=== PATIENT | female | born 1980 | race Caucasian/White ===

== ENCOUNTER 2017-06-04 06:40 | Day surgery (SDC) | payer MEDICAID ==
[2017-06-03 09:55] VITALS: BMI 27.1
[2017-06-04] MEDS ORDERED: cefOXitin IV 1 gm in Dextrose 0 GM/0 ML BAG IVPB ONE (09:40)
[2017-06-04] MEDS ORDERED: Bupivacaine HCl 0.25% PF (10 ml) Inj ONE (09:44)
[2017-06-04] MEDS ORDERED: Propofol 10 mg/ml Inj (20 ML) ONE (09:48)
[2017-06-04] MEDS ORDERED: Midazolam 2 MG/2 ML VIAL ONE (09:48)
[2017-06-04] MEDS ORDERED: Methylene Blue 10 mg/mL(10ml) IV ONE (09:54)
[2017-06-04] MEDS ORDERED: cefOXitin IV 2 gm in Dextrose 2 GM/50 ML BAG IVPB ONE (09:54)
[2017-06-04] MEDS ORDERED: Neostigmine Methylsulfate 3mg/3ml Syringe IV ONE (10:27)
[2017-06-04] MEDS ORDERED: HYDROmorphone 0.5 mg/0.5 ml ISec IVP PRN (11:12)
[2017-06-04] MEDS ORDERED: Lactated Ringer's 1,000 ML IV SCH (11:15)
[2017-06-04 11:21] VITALS: O2SAT 100
[2017-06-04] MEDS ORDERED: Lactated Ringer's 500 ML IV ONE (11:56)
[2017-06-04 12:04] VITALS: RESP 18
[2017-06-04 12:16] VITALS: BP 122/71; PULSE 82; TEMP 97
--- NOTE | 2017-06-05 13:10 | OP ---
PROCEDURE DATE: 06/04/2017 PREOPERATIVE DIAGNOSES: Fibroid uterus, ovarian cyst. POSTOPERATIVE DIAGNOSES: Pelvic adhesions and submucosal fibroid. PROCEDURE: Laparoscopy, lysis of adhesions, fimbrioplasty, chromotubation, hysteroscopy, dilation and curettage of uterus, hysteroscopic myomectomy. SURGEON: Jerome Galdamez MD LEATHER POLISHER: Dr. Wolf. ANESTHESIA: General. COMPLICATIONS: Nil. FINDINGS: A 1 cm anterior submucosal myoma. The left fallopian tube is absent. The adhesions involving the omentum and anterior abdominal wall, right perifimbrial adhesions and chromotubation. There was good distension of the uterus, but no entry of dye into the right fallopian tube consistent with right cornual tubal occlusion. The patient has a 1 cm anterior submucosal fibroid. DESCRIPTION OF PROCEDURE: After the risks, benefits, and alternatives of the planned procedures including but not limited to infection, hemorrhage, deep vein thrombosis, atelectasis, pneumonia, pulmonary embolism, damage to the bladder, damage to the ureter, renal insufficiency, renal failure, wound infection, wound dehiscence, incisional hernia, keloid formation, damage to large and small intestines, damage to inferior vena cava and aorta requiring extensive repair, anesthesia complications, electrolyte imbalance, possibility of , fluid overload, cerebral edema, air embolism, and other complications that were discussed, but are not listed above have been explained to the patient and all her questions answered and informed consent was obtained. The patient was taken to the operating room in a stable condition. Under a suitable level of general anesthesia, she was prepped and draped in a sterile fashion after having been placed in a dorsal lithotomy position. Cazares catheter was inserted. Examination under anesthesia revealed a normal-sized uterus anteverted with no adnexal masses. A weighted speculum was inserted into the vagina. The anterior lip of the cervix was grasped using a single-tooth tenaculum. An endocervical curettage was performed and scant tissue was obtained. The uterus was sounded to 7 cm. The cervix was dilated to #16 Hanks dilator. A HUMI-catheter was inserted into the cervix and insufflated into place. Through an umbilical 0.5 cm incision, a Verses needle was inserted and pneumoperitoneum was relieved which was created. The Verses needle was removed and replaced by 5-mm trocar and sleeve. A 5-mm puncture site was made in the right iliac fossa through which a 5 mm trocar and sleeve were inserted. Trocar was removed and replaced by an EndoShear scissors, which was used to lyse the right perifimbrial adhesions and also adhesions involving the omentum and anterior abdominal wall. Chromotubation was performed, there was no entry of dye into the right fallopian tube consistent with right cornual occlusion. Left fallopian tube was absent. Both ovaries were normal. The right sleeve was then removed under laparoscopic guidance. Abdomen was deflated of carbon dioxide and the umbilicus sleeve was removed under laparoscopic guidance. The skin incisions were then closed using 4-0 Monocryl. A HUMI-catheter was then removed. A hysteroscope was inserted into the uterus using saline as a distention medium, a 1 cm anterior submucosal myoma was resected using a MyoSure device with good hemostasis. The hysteroscope was then removed, a gentle endometrial curettage was performed, and scant tissue was obtained. Instruments were then removed from the vagina. There was good hemostasis. The patient was transferred to the recovery room in a stable condition. Fluid deficit for the hysteroscopic procedure was 107 mL of saline. Sponge, needle and instrument counts were correct x2. There were no complications. Jerome Galdamez MD
== END 2017-06-04 12:48 | disposition home or self-care (01) ==
LOC: C.SDS 06:40
PROVIDERS: ATTEND Obstetrics & Gynecology Reproductive Endocrinology
DX: N83.201 Unspecified ovarian cyst, right side (principal); D25.9 Leiomyoma of uterus, unspecified; D25.0 Submucous leiomyoma of uterus
CPT/HCPCS: 36415; 58561; 58672; 86850; 86900; 88305; J0694; J2250; J2704; J2710; J3010; J7120